=== PATIENT | male | born 1985 | race Caucasian/White ===

== ENCOUNTER 2018-03-26 16:14 | Emergency (ER) | payer BC ==
[~2018-03-26] VITALS: Ht 182.9 cm; Wt 110.7 kg
[~2018-03-26 16:14] MED LIST: Flexeril PO; Vicodin,Norco 5/325 PO
[2018-03-26 19:20] VITALS: BP 166/88
== END 2018-03-26 19:40 | disposition home or self-care (01) ==
LOC: EME 16:14
DX: S61.412A Laceration without foreign body of left hand, initial encounter (principal); W27.0XXA Contact with workbench tool, initial encounter; Y93.89 Activity, other specified; Z23 Encounter for immunization
CPT/HCPCS: 73130; 99281; 99284